=== PATIENT | male | born 1955 | race Caucasian/White ===

== ENCOUNTER 2019-10-16 07:23 | Outpatient (RCR) | payer BC, SELFPAY ==
--- NOTE | 2019-09-19 11:05 | P.PNWOUND_ITS ---
Wound Care Note Date/Time: 09/19/19 11:05 Patient seen in the wound clinic today after his office visit earlier this week. No new complaints or problems since his visit. Exam- ulcer is no worse. There is a small area of deeper ulceration or slough that is about 4 mm in diameter. Overall it is a pretty superficial ulcer but the skin around it is very thin. Assessment and Plan Assessment and plan (1) Open wound of umbilical region: Qualifiers: Encounter type: initial encounter Qualified Code(s): S31.105A - Unspecified open wound of abdominal wall, periumbilic region without penetration into peritoneal cavity, initial encounter Code(s): S31.105A - Unspecified open wound of abdominal wall, periumbilic region without penetration into peritoneal cavity, initial encounter Status: Chronic Assessment and Plan: Discussed with enterostomal therapist, Suzette. We will treat this with silver gel and Mepilex bridge. He will change this dressing daily. We will see him back again in 2 weeks. He will follow up in the wound clinic. (2) Umbilical hernia: Qualifiers: Obstruction and gangrene presence: with obstruction but without gangrene Qualified Code(s): K42.0 - Umbilical hernia with obstruction, without gangrene Code(s): K42.9 - Umbilical hernia without obstruction or gangrene Status: Chronic Assessment and Plan: Ideally this should be repaired however patient is really not a surgical candidate at this point. He smokes, he is morbidly obese, he is on Brilinta anti-platelet therapy due to coronary stents. He is also diabetic and I am not sure of how good his diabetic control is. He was counseled in the office earlier this week that he needs to stop smoking and lose weight before he could have a repair. Otherwise the risks of surgery and the risk of recurrence are too high to proceed. (3) Antiplatelet or antithrombotic long-term use: Code(s): Z79.02 - nursing home (current) use of antithrombotics/antiplatelets Status: Chronic (4) Morbid obesity with BMI of 40.0-44.9, adult: Code(s): E66.01 - Morbid (severe) obesity due to excess calories; Z68.41 - Body mass index (BMI) 40.0-44.9, adult Status: Chronic (5) Smoker: Code(s): F17.200 - Nicotine dependence, unspecified, uncomplicated Status: Chronic (6) Type 2 diabetes mellitus: Qualifiers: Diabetes mellitus terminal press operator insulin use: with longterm use Diabetes mellitus complication status: with hyperglycemia Qualified Code(s): E11.65 - Type 2 diabetes mellitus with hyperglycemia; Z79.4 - nursing home (current) use of insulin Code(s): E11.9 - Type 2 diabetes mellitus without complications Status: Chronic (7) History of MO (myocardial infarction): Code(s): I25.2 - Old myocardial infarction Status: Chronic (8) HTN (hypertension): Qualifiers: Hypertension type: essential hypertension Qualified Code(s): I10 - Essential (primary) hypertension Code(s): I10 - Essential (primary) hypertension Status: Chronic
[2019-09-19 12:46] VITALS: BMI 43.8
--- NOTE | 2019-10-09 17:23 | WPDWOUNDNOTE ---
Wound Care Note Date/Time: 10/09/19 17:23 Patient has been doing this over dressings. He reports no new problems or issues. Assessment and Plan Assessment and plan (1) Open wound of umbilical region: Qualifiers: Encounter type: initial encounter Qualified Code(s): S31.105A - Unspecified open wound of abdominal wall, periumbilic region without penetration into peritoneal cavity, initial encounter Code(s): S31.105A - Unspecified open wound of abdominal wall, periumbilic region without penetration into peritoneal cavity, initial encounter Status: Chronic Assessment and Plan: ulcer is healing slowly. Continue silver gel dressing changes as before. Recheck again in the wound clinic in a couple weeks. Review of Systems Review of Systems: All systems reviewed & are unremarkable except as noted in HPI and below ( HPI) Exam GI: Inspection: visible herniation ( umbilical hernia with small ulceration, smaller and healing)
--- NOTE | 2019-10-16 07:34 | P.PNWOUND_ITS ---
Wound Care Note Date/Time: 10/16/19 07:34 Mr. Urena is seen again in the wound clinic regarding the umbilical skin ulcer over his chronically incarcerated umbilical hernia. He is not a surgical candidate as he has numerous medical problems and morbid obesity. He has been using silver gel dressing with mepilex bridge daily. Assessment and Plan Assessment and plan (1) Open wound of umbilical region: Qualifiers: Encounter type: initial encounter Qualified Code(s): S31.105A - Unspecified open wound of abdominal wall, periumbilic region without penetration into peritoneal cavity, initial encounter Code(s): S31.105A - Unspecified open wound of abdominal wall, periumbilic region without penetration into peritoneal cavity, initial encounter Status: Chronic Assessment and Plan: Continues to improve. Will continue silver gel and mepilex bridge dressing changes and recheck again in 4 weeks. 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 antithrombotics/antiplatelets Status: Chronic (3) Smoker: Code(s): F17.200 - Nicotine dependence, unspecified, uncomplicated Status: Chronic (4) Morbid obesity with BMI of 40.0-44.9, adult: Code(s): E66.01 - Morbid (severe) obesity due to excess calories; Z68.41 - Body mass index (BMI) 40.0-44.9, adult Status: Chronic (5) Umbilical hernia: Qualifiers: Obstruction and gangrene presence: with obstruction but without gangrene Qualified Code(s): K42.0 - Umbilical hernia with obstruction, without gangrene Code(s): K42.9 - Umbilical hernia without obstruction or gangrene Status: Chronic Review of Systems Review of Systems: All systems reviewed & are unremarkable except as noted in HPI and below ( HPI) Exam GI: Inspection: visible herniation ( umbilical, ulcer smaller granulating clearly healing.)
--- NOTE | 2019-11-19 13:06 | PCWOUND ---
Addendum entered by Shahida Vogt RN 11/19/19 13:11: appointment for 11-20-19 Original Note: wocn note Received direction to cancel patient appointment for 11-19-19 due to Covid 19. left message to reschedule.
== END 2019-12-18 23:59 | disposition home or self-care (01) ==
LOC: ANHWOC 07:23
PROVIDERS: PCP Family Medicine; Visit Provider Surgery
DX: S31.105D Unspecified open wound of abdominal wall, periumbilic region without penetration into peritoneal cavity, subsequent encounter (principal)
CPT/HCPCS: 99212; G0463

== ENCOUNTER 2023-10-03 10:25 | Outpatient (CLI) | payer MEDICARE, SELFPAY ==
--- NOTE | ~2023-10-03 | NM_ITS ---
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 Scintigrams of the bilateral feet and ankles were obtained in angiographic, blood pool, and delayed phases. COMPARISON: Right foot radiographs dated 10/03/2023 FINDINGS: There is increased activity in the right forefoot on both the angiographic phase and immediate blood pool phase images consistent with active inflammation. There is prominent corresponding delayed uptak e in the region of the right second toe. IMPRESSION: 1. Matched 3 phase uptake region of the right second toe which would be consistent with osteomyeliti s. Review of prior radiographs pelvis demonstrates no evident acute appearing cortical erosions to mo re specifically suggest osteomyelitis and there is both severe osteoarthritis at the second proximal and distal interphalangeal joints as well as the deformity at the tuft of the distal phalanx which co uld represent old fracture deformity. These findings raise the possibility that the uptake pattern on bone scan could also be due to combination of cellulitis/soft tissue infection accounting for the ea rly uptake and coincidental delayed bone uptake related to either the osteoarthritis or remodeling re lated to the old fracture. Reviewed, dictated and finalized at location A. MOUNTER IMPRESSION: 1. Matched 3 phase uptake region of the right second toe which would be consis tent with osteomyelitis. Review of prior radiographs pelvis demonstrates no félix dent acute appearing cortical erosions to more specifically suggest osteomyelit is and there is both severe osteoarthritis at the second proximal and distal in terphalangeal joints as well as the deformity at the tuft of the distal phalanx which could represent old fracture deformity. These findings raise the possibi lity that the uptake pattern on bone scan could also be due to combination of c ellulitis/soft tissue infection accounting for the early uptake and coincidenta l delayed bone uptake related to either the osteoarthritis or remodeling relate d to the old fracture.
--- NOTE | ~2023-10-03 | XR_ITS ---
EXAMINATION: XR foot RT min 3V DATE: 10/03/2023 11:10 INDICATION: Osteomyelitis. Wound of 2nd toe. TECHNIQUE: 4 views of right foot were obtained. COMPARISON: Bone scan 10/03/23 FINDINGS: There is moderate hallux valgus. No acute fracture. There is an old fracture deformity of s econd distal phalanx. There is mild osteoarthritis of first metatarsophalangeal joint and some of the interphalangeal joints. There is moderate osteoarthritis of first interphalangeal joint and severe o steoarthritis of second proximal and distal interphalangeal joints. IMPRESSION: 1. No evidence of osteomyelitis. 2. Polyarticular osteoarthritis. 3. Moderate hallux valgus. Reviewed, dictated and finalized at location E. [employer]
== END 2023-10-03 10:26 | disposition home or self-care (01) ==
LOC: ANHIMG 10:30
PROVIDERS: Visit Provider Podiatrist Foot & Ankle Surgery
DX: L97.514 Non-pressure chronic ulcer of other part of right foot with necrosis of bone (principal); M19.071 Primary osteoarthritis, right ankle and foot; M20.11 Hallux valgus (acquired), right foot
CPT/HCPCS: 73630; 78315; A9503